=== PATIENT | female | born 1950 | race Two or more races ===

== ENCOUNTER 2019-06-09 02:07 | Emergency (ER) | payer OTHER ==
[~2019-06-09] VITALS: Ht 162.6 cm; Wt 73.6 kg
[2019-06-09 02:42] LABS: GLUCOSE,POINT OF CARE 132 MG/DL (70-110)
[2019-06-09] MEDS ORDERED: LEVO100T13 PO (02:49)
[2019-06-09] MEDS ORDERED: METF-446 PO (02:49)
[2019-06-09] MEDS ORDERED: ATEN50TA PO (02:49)
[2019-06-09] MEDS ORDERED: BACL20TA PO (02:49)
[2019-06-09] MEDS ORDERED: DOCU100C33 PO (02:49)
[2019-06-09] MEDS ORDERED: SERT25TA5 PO (02:49)
[2019-06-09] MEDS ORDERED: HYDR2 PO (02:49)
[2019-06-09] MEDS ORDERED: LIDOCAINE 1% 10 ML VIAL INJ ONE (03:30)
[2019-06-09] MEDS ORDERED: AMOX TR/POT CLAV 875 MG/125 MG TABLET PO ONE (03:30)
[2019-06-09] MEDS ORDERED: PERTUSS(ACELL),DIPH,TET VAC/PF 0.5 ML VIAL IM ONE (03:30)
[2019-06-09] MEDS ORDERED: ACETAMINOPHEN 500 MG TABLET PO ONE (05:15)
[2019-06-09 05:30] VITALS: BP 130/85
== END 2019-06-09 05:45 | disposition home or self-care (01) ==
LOC: EMS 02:07
DX: S61.210A Laceration without foreign body of right index finger without damage to nail, initial encounter (principal); I10 Essential (primary) hypertension; E78.00 Pure hypercholesterolemia, unspecified; E03.9 Hypothyroidism, unspecified; E11.9 Type 2 diabetes mellitus without complications; F41.9 Anxiety disorder, unspecified; Z88.6 Allergy status to analgesic agent; Z88.8 Allergy status to other drugs, medicaments and biological substances; Z79.899 Other long term (current) drug therapy; W54.0XXA Bitten by dog, initial encounter; Y93.89 Activity, other specified; Y92.89 Other specified places as the place of occurrence of the external cause; Y99.8 Other external cause status
CPT/HCPCS: 12004; 73130; 82962; 90471; 90715; 99283; J3490